=== PATIENT | female | born 1955 | race Caucasian/White ===

== ENCOUNTER 2022-02-14 10:21 | Inpatient (IN) ==
[2022-02-14] MEDS ORDERED: CeFAZolin Syr 2,000MG/20 ML 2,000 MG/20 ML SYRINGE IVPB ONE (11:00)
[2022-02-14] MEDS ORDERED: Ringers Solution, Lactated 1,000 ML IVC SCH (11:00)
[2022-02-14] MEDS ORDERED: *HR* HYDROmorphone PF 0.5 MG/0.5 ML SYRINGE IVP PRN (11:20)
[2022-02-14] MEDS ORDERED: *HR* Midazolam HCl 2 MG/2 ML VIAL ONE (11:37)
[2022-02-14] MEDS ORDERED: *HR* FentaNYL (PF) 100 MCG/2 ML VIAL ONE (11:37)
[2022-02-14] MEDS ORDERED: *HR* Propofol 200 MG/20 ML VIAL IVP ONE (11:38)
[2022-02-14] MEDS ORDERED: Lidocaine -MPF 2% 5 ML VIAL ONE (11:43)
[2022-02-14] MEDS ORDERED: *HR* Rocuronium Bromide 50 MG/5 ML VIAL ONE ×5 (11:44→17:38)
[2022-02-14] MEDS ORDERED: Lidocaine HCL 4 ML Topical Solution (Laryng-O-Jet Kit Sterile Pak) TP ONE (11:46)
[2022-02-14] MEDS ORDERED: Bupivacaine-MPF 0.25% 10 ML VIAL ONE ×2 (12:48→14:09)
[2022-02-14] MEDS ORDERED: Ondansetron 4 MG/2 ML VIAL ONE ×2 (13:33→17:01)
[2022-02-14] MEDS ORDERED: Acetaminophen IV 1,000 MG/100 ML BAG IVPB ONE (13:58)
[2022-02-14] MEDS ORDERED: EPHEDrine 50 MG/ML VIAL ONE (15:29)
[2022-02-14] MEDS ORDERED: Albumin Human 5% 25.0 GM/500 ML IV.SOLN ONE (15:39)
[2022-02-14] MEDS ORDERED: Tranexamic Acid 1,000 MG/10 ML VIAL ONE (16:39)
[2022-02-14] MEDS ORDERED: *HR* Heparin 5,000 UNIT/ML VIAL ONE (16:53)
[2022-02-14] MEDS ORDERED: Sugammadex Sodium 200 MG/2 ML VIAL IV ONE (17:01)
[2022-02-14] MEDS ORDERED: *HR* HYDROMORPHONE 2 MG/ML VIAL ONE (18:40)
[2022-02-14] MEDS ORDERED: *HR* HYDROmorphone (PF) 1 MG/ML SYRINGE ONE (19:27)
[2022-02-14] MEDS ORDERED: Haloperidol Lactate 5 MG/ML VIAL ONE (19:39)
[2022-02-14] MEDS ORDERED: *HR* Promethazine 25 MG/ML VIAL IVPB ONE (19:41)
[2022-02-14] MEDS ORDERED: Promethazine 6.25 MG in Water for inj. (sterile) 20 ML IVPB PRN (19:45)
[2022-02-14] MEDS ORDERED: *HR* HYDROmorphone (PF) 1 MG/ML SYRINGE IVP PRN (19:45)
[2022-02-14] MEDS ORDERED: Famotidine 20 MG TABLET PO PRN (21:42)
[2022-02-14] MEDS ORDERED: Ondansetron 4 MG/2 ML VIAL IVP PRN (21:42)
[2022-02-14] MEDS ORDERED: Naloxone 0.4 MG/ML INJ IVP PRN (21:42)
[2022-02-14] MEDS ORDERED: *HR* Belladonna Alkaloids/Opium 30 MG RECTAL SUPPOSITORY RC PRN (21:42)
[2022-02-14] MEDS: 0.9 % Sodium Chloride 1,000 ML IVC SCH (22:11)
[2022-02-14] MEDS: CeFAZolin 2 GM/120 ML BAG IVPB SCH (23:52)
[2022-02-15] MEDS: 0.9 % Sodium Chloride 1,000 ML IVC SCH ×3 (05:30→21:12)
[2022-02-15 08:18] LABS: Basophils % 0.1 %; Hematocrit 31.7 % (35.3-44.9); Immature Granulocytes % 0.4 % (0-4); Lymphocytes # 1.3 K/mcL (0.6-4.6); Lymphocytes % 10.8 %; Mean Corpuscular HGB Conc 32.2 g/dL (31.6-35.5); Mean Corpuscular Hemoglobin 28.7 pg (28.0-33.3); Mean Platelet Volume 10.5 fL (9.4-12.4); Monocytes # 0.9 K/mcL (0.0-1.3); Monocytes % 7.1 %; Neutrophils # 10.1 K/mcL (1.6-8.9); Platelet Count 194 K/mcL (140-400); Red Blood Count 3.56 M/mcL (3.82-4.97); Red Cell Distribution Width 13.6 % (11.5-14.5); Segmented Neutrophils % 81.6 %; White Blood Count 12.4 K/mcL (4.3-11.1)
[2022-02-15 08:24] LABS: Calcium 8.9 mg/dL (8.6-10.3); Potassium 4.2 mEq/L (3.5-5.1)
[2022-02-15 08:28] LABS: Hemoglobin 10.2 g/dL (11.5-15.4)
[2022-02-15] MEDS: CeFAZolin 2 GM/120 ML BAG IVPB SCH ×2 (09:44→10:03)
[2022-02-15] MEDS: amLODIPine 5 MG TABLET PO SCH (09:44)
[2022-02-15] MEDS: Acetaminophen IV 1,000 MG/100 ML BAG IVPB SCH (15:48)
[2022-02-16] MEDS: Acetaminophen IV 1,000 MG/100 ML BAG IVPB SCH ×4 (01:01→23:17)
[2022-02-16 02:59] LABS: Hematocrit 27.3 % (35.3-44.9); Hemoglobin 8.6 g/dL (11.5-15.4)
[2022-02-16] MEDS: 0.9 % Sodium Chloride 1,000 ML IVC SCH (05:11)
[2022-02-16] MEDS: amLODIPine 5 MG TABLET PO SCH (08:22)
[2022-02-17] MEDS: Acetaminophen IV 1,000 MG/100 ML BAG IVPB SCH (08:07)
[2022-02-17] MEDS: amLODIPine 5 MG TABLET PO SCH (08:08)
[2022-02-17 09:30] LABS: Hematocrit 27.9 % (35.3-44.9); Hemoglobin 9.2 g/dL (11.5-15.4)
[2022-02-17] MEDS ORDERED: Acetaminophen 325 MG TABLET PO PRN (09:38)
[2022-02-17 09:49] LABS: Calcium 8.5 mg/dL (8.6-10.3); Potassium 3.4 mEq/L (3.5-5.1)
[2022-02-17] MEDS: *HR* OxyCODONE/APAP 5/325 TABLET PO PRN ×2 (17:03→22:52)
[2022-02-18] MEDS: amLODIPine 5 MG TABLET PO SCH (08:53)
[2022-02-18] MEDS: *HR* OxyCODONE/APAP 5/325 TABLET PO PRN (08:53)
[2022-02-18 09:00] VITALS: BP 150/75; PULSE 82; TEMP 99.2; O2SAT 94
== END 2022-02-18 14:12 | disposition home or self-care (01) | DRG 660 ==
LOC: SAMDAY 10:21 → 3BNU 10:21
PROVIDERS: ADMIT Urology; ATTEND Urology

== ENCOUNTER 2022-02-20 22:56 | Inpatient (IN) ==
[2022-02-21 03:01] LABS: Basophils % 0.3 %; Eosinophils # 0.4 K/mcL (0.0-0.6); Eosinophils % 4.5 %; Hematocrit 32.5 % (35.3-44.9); Hemoglobin 10.4 g/dL (11.5-15.4); Immature Granulocytes % 0.7 % (0-4); Lymphocytes # 2.2 K/mcL (0.6-4.6); Lymphocytes % 24.7 %; Mean Corpuscular Hemoglobin 28.6 pg (28.0-33.3); Mean Corpuscular Volume 89.3 fL (83.0-100.0); Mean Platelet Volume 9.8 fL (9.4-12.4); Monocytes # 0.9 K/mcL (0.0-1.3); Monocytes % 9.7 %; Neutrophils # 5.4 K/mcL (1.6-8.9); Platelet Count 246 K/mcL (140-400); Red Blood Count 3.64 M/mcL (3.82-4.97); Red Cell Distribution Width 13.6 % (11.5-14.5); Segmented Neutrophils % 60.1 %
[2022-02-21] MEDS ORDERED: Iopamidol - 370 500 ML MLS IVP ONE (03:03)
[2022-02-21 03:15] LABS: Albumin 3.7 g/dL (3.5-5.7); Albumin/Globulin Ratio 1.2 (1.1-2.2); Bilirubin,Total 0.7 mg/dL (0.3-1.0); Calcium 9.2 mg/dL (8.6-10.3); Potassium 3.2 mEq/L (3.5-5.1); Total Protein 6.7 g/dL (6.4-8.9)
[2022-02-21 03:15] LABS: Bilirubin,Urine Negative (Negative); Blood,Urine Negative (Negative); Clarity,Urine Clear (Clear); Color,Urine Yellow (Yellow); Glucose,Urine (UA) Normal (Normal); Ketones,Urine Negative (Negative); Leukocyte Esterase,Urine Small (Negative); Mucus,Urine Few per lpf (None-Few); Nitrite,Urine Negative (Negative); Protein,Urine 50 mg/dL (Neg-Trace); RBC,Urine 0-3 per hpf (0-3); Specific Gravity,Urine 1.026 (1.010-1.025); Squamous Epithelial Cell,Urine Few per hpf (None-Few)
[2022-02-21 03:31] LABS: Influenza A PCR Negative (Negative); Influenza B PCR Negative (Negative); Resp. Syncytial Virus PCR Negative (Negative)
[2022-02-21 03:46] LABS: SARS-CoV-2 by PCR (In House) Negative (Negative)
[2022-02-21] MEDS ORDERED: Piperacillin/Tazobactam 3.375 GM in 0.9 % Sodium Chloride Mini Bag 100 ML IVPB ONE (05:37)
[2022-02-21] MEDS ORDERED: Naloxone 0.4 MG/ML INJ IVP PRN (05:58)
[2022-02-21] MEDS ORDERED: Ondansetron 4 MG/2 ML VIAL IVP PRN (05:58)
[2022-02-21] MEDS ORDERED: Melatonin 3 MG TABLET PO PRN (05:58)
[2022-02-21] MEDS ORDERED: Acetaminophen 325 MG TABLET PO PRN (06:00)
[2022-02-21] MEDS ORDERED: *HR* OxyCODONE Immed Rel 5 MG TABLET PO PRN (06:00)
[2022-02-21] MEDS ORDERED: *HR* Promethazine 25 MG/ML VIAL IM PRN (06:00)
[2022-02-21] MEDS ORDERED: 0.9 % Sodium Chloride 1,000 ML IVC SCH (06:00)
[2022-02-21] MEDS ORDERED: *HR* Heparin 5,000 UNIT/ML VIAL IVP PRN ×2 (08:15)
[2022-02-21] MEDS ORDERED: *HR* Heparin 5,000 UNIT/ML VIAL IVP ONE (08:15)
[2022-02-21] MEDS: Heparin 25,000UNIT/250ML 1/2NS 25,000 UNIT/250 ML IV.SOLN IVC SCH (08:39)
[2022-02-21 09:13] LABS: Heparin anti-factor XA UFH < 0.04 IU/mL (0.30-0.70)
[2022-02-21 11:15] LABS: INR 1.1
[2022-02-21] MEDS: Piperacillin/Tazobactam 3.375 GM in 0.9 % Sodium Chloride Mini Bag 100 ML IVPB SCH ×2 (16:04→21:58)
[2022-02-21] MEDS ORDERED: Warfarin perPT PO PRN (18:00)
[2022-02-21] MEDS ORDERED: *HR* Warfarin 5 MG TABLET PO SCH (18:00)
[2022-02-21] MEDS: *HR* HYDROcodone/Acet 5/325 mg TABLET PO PRN (21:59)
[2022-02-22 03:03] LABS: Basophils # 0.1 K/mcL (0.0-0.2); Basophils % 0.6 %; Eosinophils # 0.5 K/mcL (0.0-0.6); Eosinophils % 5.7 %; Hematocrit 28.3 % (35.3-44.9); Hemoglobin 8.9 g/dL (11.5-15.4); Immature Granulocytes % 0.5 % (0-4); Lymphocytes # 2.8 K/mcL (0.6-4.6); Lymphocytes % 34.1 %; Mean Corpuscular HGB Conc 31.4 g/dL (31.6-35.5); Mean Corpuscular Hemoglobin 28.1 pg (28.0-33.3); Mean Corpuscular Volume 89.3 fL (83.0-100.0); Mean Platelet Volume 9.8 fL (9.4-12.4); Monocytes # 0.8 K/mcL (0.0-1.3); Monocytes % 9.3 %; Neutrophils # 4.1 K/mcL (1.6-8.9); Platelet Count 253 K/mcL (140-400); Red Blood Count 3.17 M/mcL (3.82-4.97); Red Cell Distribution Width 13.7 % (11.5-14.5); Segmented Neutrophils % 49.8 %; White Blood Count 8.2 K/mcL (4.3-11.1)
[2022-02-22 03:23] LABS: INR 1.1; Prothrombin Time 12.4 Seconds (9.4-12.1)
[2022-02-22 05:03] LABS: Calcium 8.4 mg/dL (8.6-10.3); Phosphorous 2.8 mg/dL (2.7-4.5); Potassium 4.3 mEq/L (3.5-5.1)
[2022-02-22] MEDS: Piperacillin/Tazobactam 3.375 GM in 0.9 % Sodium Chloride Mini Bag 100 ML IVPB SCH ×3 (06:01→21:07)
[2022-02-22] MEDS: *HR* HYDROcodone/Acet 5/325 mg TABLET PO PRN ×2 (06:01→18:55)
[2022-02-22] MEDS: Heparin 25,000UNIT/250ML 1/2NS 25,000 UNIT/250 ML IV.SOLN IVC SCH (06:50)
[2022-02-22] MEDS ORDERED: FELODIPINE 2.5 MG PO SCH (09:00)
[2022-02-22] MEDS: Aspirin Enteric Coated 81 MG Tablet PO SCH (09:32)
[2022-02-22] MEDS ORDERED: *HR* Warfarin 5 MG TABLET PO ONE (18:00)
[2022-02-23] MEDS: Heparin 25,000UNIT/250ML 1/2NS 25,000 UNIT/250 ML IV.SOLN IVC SCH (04:34)
[2022-02-23] MEDS: Piperacillin/Tazobactam 3.375 GM in 0.9 % Sodium Chloride Mini Bag 100 ML IVPB SCH ×3 (04:35→21:30)
[2022-02-23] MEDS: Aspirin Enteric Coated 81 MG Tablet PO SCH (09:38)
[2022-02-23] MEDS: *HR* Enoxaparin 100 MG/ML SYRINGE SQ SCH ×2 (10:39→21:31)
[2022-02-23 10:44] LABS: Basophils # 0.1 K/mcL (0.0-0.2); Basophils % 0.7 %; Eosinophils # 0.5 K/mcL (0.0-0.6); Eosinophils % 6.5 %; Immature Granulocytes % 0.6 % (0-4); Lymphocytes % 23.9 %; Mean Corpuscular HGB Conc 32.2 g/dL (31.6-35.5); Mean Corpuscular Hemoglobin 28.3 pg (28.0-33.3); Mean Corpuscular Volume 87.9 fL (83.0-100.0); Mean Platelet Volume 9.5 fL (9.4-12.4); Monocytes # 0.7 K/mcL (0.0-1.3); Platelet Count 269 K/mcL (140-400); Red Blood Count 3.07 M/mcL (3.82-4.97); Red Cell Distribution Width 13.7 % (11.5-14.5); Segmented Neutrophils % 60.3 %; White Blood Count 8.3 K/mcL (4.3-11.1)
[2022-02-23 10:47] LABS: Hemoglobin 8.7 g/dL (11.5-15.4)
[2022-02-23 10:56] LABS: INR 1.6; Prothrombin Time 18.2 Seconds (9.4-12.1)
[2022-02-23 11:14] LABS: Calcium 8.6 mg/dL (8.6-10.3); Potassium 3.8 mEq/L (3.5-5.1)
[2022-02-23] MEDS ORDERED: 0.9 % Sodium Chloride 1,000 ML IVC SCH (12:45)
[2022-02-23 13:00] LABS: BUN/Creatinine Ratio 13 (6-26); Blood Urea Nitrogen 17 mg/dL (8-23); eGFR For African Americans 48 (> 60); eGFR For Non-African Americans 39 (> 60)
[2022-02-23] MEDS: *HR* HYDROcodone/Acet 5/325 mg TABLET PO PRN (13:38)
[2022-02-23] MEDS ORDERED: *HR* Warfarin 3 MG TABLET PO ONE (18:00)
[2022-02-24 00:05] VITALS: PULSE 69; O2SAT 95
[2022-02-24] MEDS: *HR* HYDROcodone/Acet 5/325 mg TABLET PO PRN ×2 (00:07→14:32)
[2022-02-24] MEDS: Piperacillin/Tazobactam 3.375 GM in 0.9 % Sodium Chloride Mini Bag 100 ML IVPB SCH ×2 (04:54→13:46)
[2022-02-24 05:20] LABS: Hematocrit 26.7 % (35.3-44.9); Hemoglobin 8.7 g/dL (11.5-15.4); Mean Corpuscular HGB Conc 32.6 g/dL (31.6-35.5); Mean Corpuscular Hemoglobin 28.9 pg (28.0-33.3); Mean Corpuscular Volume 88.7 fL (83.0-100.0); Mean Platelet Volume 9.7 fL (9.4-12.4); Platelet Count 287 K/mcL (140-400); Red Blood Count 3.01 M/mcL (3.82-4.97); Red Cell Distribution Width 13.6 % (11.5-14.5); White Blood Count 8.4 K/mcL (4.3-11.1)
[2022-02-24 05:30] LABS: INR 2.2; Prothrombin Time 23.9 Seconds (9.4-12.1)
[2022-02-24 05:38] LABS: Calcium 8.4 mg/dL (8.6-10.3); Potassium 3.7 mEq/L (3.5-5.1)
[2022-02-24 09:43] VITALS: BP 144/73; TEMP 98.5
[2022-02-24] MEDS: Aspirin Enteric Coated 81 MG Tablet PO SCH (10:09)
[2022-02-24] MEDS: *HR* Enoxaparin 100 MG/ML SYRINGE SQ SCH (10:11)
== END 2022-02-24 14:45 | disposition home or self-care (01) | DRG 175 ==
LOC: 3ANU 22:56 → EMEROOARM 22:56 → SUATTDRO 02-21 12:52 → 3ANU 02-21 15:02
PROVIDERS: ADMIT Internal Medicine; ATTEND Internal Medicine